=== PATIENT | male | born 1960 | race Caucasian/White ===

== ENCOUNTER 2021-01-21 17:24 | Inpatient (IN) | payer BC, SELFPAY ==
[2021-01-21] VITALS (25 sets, daily range): BP systolic 110–143; BP diastolic 72–94; PULSE 71–99; RESP 16–34; TEMP 36.2–38; O2SAT 90–97; BMI 25.2
--- NOTE | ~2021-01-21 | CT_ITS ---
EXAMINATION: CTA chest PE protocol DATE: 01/21/2021 18:46 INDICATION: Shortness of breath. Fever. TECHNIQUE: Computed tomography angiography (CTA) of the chest was performed with 100 mL Omnipaque-350 intravenous contrast timed to evaluate the pulmonary arteries. Coronal maximum intensity projection 3D-reconstructions were created by the technologist. Automated exposure control and iterative reconst ruction technique were employed. The dose-length product was 535.75 mGy-cm. COMPARISON: Chest single view 01/21/2021 FINDINGS: There are patchy areas of groundglass opacity and crazy paving involving all lobes. There a re patchy airspace opacities in the upper lobes and lower lobes. No pleural effusion. The heart size is normal. No pericardial effusion. There is no pulmonary embolus. There are cysts in the liver measu ring up to 13 mm. There is severe cervical spondylosis and mild thoracic spondylosis. IMPRESSION: 1. No pulmonary embolus. 2. Diffuse lung disease, likely atypical pneumonia such COVID-19 pneumonia. Reviewed, dictated and finalized at location A.
--- NOTE | ~2021-01-21 | XR_ITS ---
EXAMINATION: XR chest 1V portable DATE: 01/21/2021 18:04 INDICATION: Fever and shortness of breath. TECHNIQUE: A single frontal view of the chest was obtained. COMPARISON: None. FINDINGS: There are airspace opacities involving all lung zones bilaterally, worst in the peripheral midlung zones. No pleural effusion or pneumothorax. The heart size is normal. IMPRESSION: 1. Diffuse lung disease, consistent with pneumonia. Reviewed, dictated and finalized at location A.
--- NOTE | 2021-01-21 17:32 | ECG_ITS ---
Measurements Intervals [place] Rate: 92 P: 53 TN: 145 QRS: -22 QRSD: 101 T: 43 QT: 341 QTc: 422 Interpretive Statements SINUS RHYTHM DELAYED PRECORDIAL R/S TRANSITION BORDERLINE ECG Electronically Signed On 01-22-2021 6:00:22 CDT by Edmar Contreras D.O.
[2021-01-21 17:49] LABS: Basophils Percent Auto 0.2 % (0.2-1.2); Eosinophils Percent Auto 0.1 % (0-4.4); Hematocrit 44.8 % (42.0-52.0); Hemoglobin 15.7 g/dL (14.0-18.0); Immature Granulocyte Absolute 0.05 K/mm3 (0.00-0.031); Immature Granulocyte Percent A 0.6 % (0-0.5); Lymphocytes Absolute Auto 1.21 K/mm3 (0.9-3.2); Lymphocytes Percent Auto 13.7 % (18.3-44.2); Mean Corpuscular Hemoglobin 31.2 pg (26-34); Mean Corpuscular Volume 89.1 fl (80-100); Mean Platelet Volume 9.2 fl (7.4-10.4); Monocytes Absolute Auto 0.8 K/mm3 (0.1-0.6); Monocytes Percent Auto 9.4 % (2.6-8.5); Neutrophils Absolute Auto 6.7 K/mm3 (1.3-6.7); Platelet Count Result 369 k/mm3 (150-375); Red Blood Count 5.03 M/mm3 (4.6-6.20); Red Cell Distribution Width 12.3 % (11.5-14.5); White Blood Count 8.9 K/mm3 (4.5-10.0)
[2021-01-21 17:52] LABS: Alveolar/Arterial O2 Gradient 142.1 mmHg; Fractional Inspired Oxygen 32 %; HCO3 ABG 19.3 mEq/l (22.0-26.0); Oxygen Saturation ABG 92.1 % (95.0-100.0); Oxyhemoglobin 90.4 % THb (90.0-100.0); PCO2 ABG 25.6 mmHg (35.0-45.0); PO2 ABG 56.1 mmHg (80.0-100.0); PO2 FiO2 Ratio Arterial Blood 1.75 %; Total Hemoglobin 15.8 g/dL (12.0-18.0); pH ABG 7.496 (7.350-7.450)
[2021-01-21 17:53] LABS: Device NASAL CANNULA; Modified Allen's Test Pass; Site Drawn RIGHT RADIAL
--- NOTE | 2021-01-21 17:58 | ED.GENADULT ---
HPI - General Adult General Chief complaint: Shortness of Breath/Dyspnea Stated complaint: respiratory s/s Time Seen by Provider: 01/21/21 17:37 Source: patient and RN notes reviewed Mode of arrival: ambulatory Limitations: no limitations History of Present Illness HPI narrative: Patient is a 60-year-old male who presents to emergency department for evaluation of fatigue weakness shortness of breath that has been present for the last 6 days began with fatigue nonproductive cough patient notes weakness with little p.o. intake. 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 Patient denies any vomiting diarrhea patient. Patient denies any sick contacts at home. Patient is not been taking anything for his symptoms. Related Data Home Medications Medication Instructions Recorded Confirmed amlodipine 01/21/21 lisinopril 01/21/21 Allergies Allergy/AdvReac Type Severity Reaction Status Date / Time No Known Allergies Allergy Mild Verified 02/03/08 04:41 Review of Systems Review of Systems: All systems reviewed & are unremarkable except as noted in HPI and below PMFSH Family History Family History (Updated 03/24/14 @ 07:13 by DOCTOR UNKNOWN) Mother Family history of heart disease in male family member before age 55 Social History Social History Smoking status: Never smoker Alcohol intake: current Exam Narrative: Exam Narrative: GENERAL: Well-appearing, well-nourished, and in no acute distress. HEAD: Normocephalic, atraumatic. EYES: PERRLA and EOMI. ENT: Nares clear, no rhinorrhea or epistaxis. Mucous membranes moist. CHEST: Clear to auscultation. No respiratory distress. No wheezes rales or rhonchi HEART: Regular rate and rhythm. No murmur heard. Crackles throughout the lung jo ABDOMEN: Soft, nontender, distended EXTREMITIES: Normal range of motion. No edema. SKIN: Warm, dry, no rash. NEURO: No focal deficits. Alert and oriented x3. Cranial nerves II through XII grossly intact PSYCH: Normal mood and affect. Course Course Emergency Course: Patient presented with respiratory distress given his hypoxemia with diffuse Covid pneumonia patient was given fluids antipyretics antivirals plasma ordered from the ER will be placed in hospital for findings all concerning for Covid pneumonia patient agrees to stay in hospital is currently on 5 L nasal cannula. Patient will be admitted to the IMU. PE was ruled out Consultations Consultation #1: Discussed case with hospitalist Dr. Ruvalcaba who has agreed to accept the patient, patient will be placed in the IMU Date: 01/21/21 Time: 20:07 Vital Signs Vital signs: Vital Signs Temperature 100.4 F H 01/21/21 17:28 Pulse Rate 95 01/21/21 17:28 Respiratory Rate 25 H 01/21/21 17:28 Blood Pressure 132/90 01/21/21 17:28 Pulse Oximetry 94 01/21/21 17:28 Temperature 99.8 F H 01/21/21 19:08 Pulse Rate 84 01/21/21 19:31 Respiratory Rate 25 H 01/21/21 19:31 Blood Pressure 125/84 01/21/21 19:31 Pulse Oximetry 91 01/21/21 19:31 Medical Decision Making MDM Narrative Medical decision making narrative: Patient in the room at this time aware of case findings treatment plan diagnosis will require hospitalization for findings all concerning for hypoxemia and respiratory distress secondary to Covid pneumonia. Vital Signs Vital Signs: Vital Signs Temperature 100.4 F H 01/21/21 17:28 Pulse Rate 95 01/21/21 17:28 Respiratory Rate 25 H 01/21/21 17:28 Blood Pressure 132/90 01/21/21 17:28 Pulse Oximetry 94 01/21/21 17:28 Temperature 99.8 F H 01/21/21 19:08 Pulse Rate 84 01/21/21 19:31 Respiratory Rate 25 H 01/21/21 19:31 Blood Pressure 125/84 01/21/21 19:31 Pulse Oximetry 91 01/21/21 19:31 Lab Data Result diagrams: 01/21/21 17:37 01/21/21 17:37 Labs: Lab Results 01/21/21 01/21/21 01/21/21 Range/Un
[2021-01-21 17:59] LABS: Prothrombin Time 13.6 Seconds (11.1-14.7)
[2021-01-21 17:59] LABS: Lactic Acid Reflex 1.4 mmol/L (0.7-2.1)
[2021-01-21 18:00] LABS: Alanine Aminotransferase 33 U/L (4-50); Albumin Level 4.1 g/dL (3.5-5.1); Alkaline Phosphatase 41 U/L (38-126); Anion Gap 10 mmol/L (8-16); Aspartate Amino Transferase 53 U/L (17-59); Bilirubin,Total 0.7 mg/dL (0.2-1.3); Blood Urea Nitrogen 16 mg/dL (9-20); Calcium 8.6 mg/dL (8.4-10.2); Carbon Dioxide 25 mmol/L (22-30); Chloride 99 mmol/L (98-107); Estimated CRCL calculation 83 ml/min; Estimated Glomerular Filt Rate > 60; Glucose 121 mg/dL (75-110); Magnesium 2.2 mg/dL (1.6-2.3); Partial Thromboplastin Time 25.1 SECONDS (22.3-36.8); Potassium 4.2 mmol/L (3.4-5.0); Sodium 134 mmol/L (137-145)
[2021-01-21 18:03] LABS: Atypical Lymphocytes Present; Platelet Estimate Adequate (Adequate)
[2021-01-21 18:11] LABS: Phosphorus 3.4 mg/dL (2.5-4.5)
[2021-01-21 18:11] LABS: NT Pro B Type Natriuretic Pept 74 pg/mL (5-100); Troponin I < 0.012 ng/mL (0.000-0.034)
--- NOTE | 2021-01-21 18:14 | PC.NURSE ---
Patient states he has been having explosive diarrhea for a week but states today his stools seem more solid. Patient reports a decreased appetite and has been dribbling while attempting to void.
[2021-01-21 18:16] LABS: D Dimer 2.35 ug/mL (<0.48)
[2021-01-21] MEDS: DEXAMETHASONE SOD PHOS INJ 4 MG/ML VIAL 6 MG IV PUSH (18:16)
[2021-01-21] MEDS: SODIUM CHLORIDE 0.9% IV 1,000 ML 999 ML IV CONT (18:17)
[2021-01-21] MEDS: FAMOTIDINE 20 MG/2 ML VIAL IV PUSH (18:19)
[2021-01-21 18:41] LABS: Procalcitonin 0.1 ng/mL
--- NOTE | 2021-01-21 19:02 | PC.NURSE ---
Patient back from radiology.
--- NOTE | 2021-01-21 19:30 | PC.NURSE ---
Pt O2 sat at 90% on 4L, consulted PA. Pt now on 5L per verbal read back order.
[2021-01-21 20:35] LABS: Alanine Aminotransferase 30 U/L (4-50); Estimated CRCL calculation 93 ml/min; Estimated Glomerular Filt Rate > 60
[2021-01-21] MEDS: SODIUM CHLORIDE 0.9% IV 250 ML 30 ML IV CONT (20:35)
[2021-01-21 20:36] LABS: INR 1.1; Prothrombin Time 14.7 Seconds (11.1-14.7)
[2021-01-21] MEDS: REMDESIVIR 200 MG/NS 250 ML 200 MG/250 ML BAG 250 MG IVPB (20:37)
[2021-01-21] MEDS: ALBUTEROL SULFATE (*SP) INHALER 1 PUFF (20:43)
--- NOTE | 2021-01-21 21:02 | PC.NURSE ---
Report received from CINTHIA Patel.
--- NOTE | 2021-01-21 21:12 | PM.IMHP ---
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 Upon presentation to emergency room his room oxygen saturation was in the low 80s requiring supplemental oxygen with 5 L and increased to 92%. Preliminary workup was significant for extensive multilevel lung infiltrates present on chest x-ray and CT angio with was which was negative for PE. patient denies any nausea vomiting diarrhea abdominal pain chest pain syncope near syncope PND orthopnea. Decision has been made to admit the patient for for the management and treatment. Review of Systems Review of Systems: Narrative: patient presented to the emergency room due to worsening fatigue decreased stamina shortness of breath chills fevers decreased appetite Constitutional: Constitutional: Reports body ache(s), Reports chills, Reports fatigue, Reports fever(s), Reports lethargy, Reports malaise and Reports weakness Eyes: Eyes: Denies change in vision ENT: Denies nasal congestion, Denies nasal discharge and Denies nasal obstruction Cardiovascular: Cardiovascular: Denies irregular heart rhythm, Denies radiating jaw, neck or arm pain, Denies palpitations, Denies dyspnea, Reports dyspnea on exertion and Denies orthopnea Respiratory: Respiratory: Reports cough, Denies excessive phlegm production, Reports dyspnea and Denies wheezing Gastrointestinal: Gastrointestinal: Denies dyspepsia, Denies diarrhea, Denies nausea and Denies vomiting Genitourinary: Genitourinary: Denies dysuria Musculoskeletal: Musculoskeletal: Reports no additional musculoskeletal complaints Integumentary/Breasts: Skin/Breast: Reports system reviewed and no additional complaints, except as docu Neurologic: Reports system reviewed and no additional complaints, except as documented Psychiatric: Psychiatric: Reports no additional psychiatric complaints Endocrine: Endocrine: Reports no additional endocrine complaints Hematologic/Lymphatic: Hematologic/Lymphatic: Reports no additional hematologic/lymphatic complaints Allergic/Immunologic: Allergic/Immunologic: Reports no additional allergic/immunologic complaints [facility] Family History Family History (Updated 03/24/14 @ 07:13 by DOCTOR UNKNOWN) Mother Family history of heart disease in male family member before age 55 Social History Social History Smoking status: Never smoker Alcohol intake: current Meds Home Medications and Allergies Home Medications Medication Instructions Recorded Confirmed Type amlodipine 01/21/21 History lisinopril 01/21/21 History Allergies Allergy/AdvReac Type Severity Reaction Status Date / Time No Known Allergies Allergy Mild Verified 02/03/08 04:41 Vital Signs Vital Signs - 24 hr 01/21/21 17:28 01/21/21 17:30 01/21/21 17:31 Temperature 100.4 F H Pulse Rate 95 91 95 Respiratory Rate 25 H 16 28 H Blood Pressure 132/90 132/90 Pulse Oximetry 94 93 94 01/21/21 17:43 01/21/21 17:45 01/21/21 17:46 Temperature Pulse Rate 87 92 93 Respiratory Rate 31 H 32 H Blood Pressure 134/81 Pulse Oximetry 93 92 93 01/21/21 18:00 01/21/21 18:01 01/21/21 18:15 Temperature Pulse Rate 97 99 97 Respiratory Rate 34 H 33 H 21 H Blood Pressure 143/94 H Pulse Oximetry 91 91 92 01/21/21 19:07 01/21/21 19:08 01/21/21 19:26 Temperature 99.8 F H 99.8 F H Pulse Rate 81 Respiratory Rate 25 H Blood Pressure 119/81 Pulse Oximetry 91 01/21/21 19:30 01/21/21 19:31 01/21/21 20:01
--- NOTE | 2021-01-21 21:27 | ADMGEN ---
This patient, Tavo Ibrahim, was admitted to IMU Room 213-01 on 01/21/21 at 2110. Patient/family oriented to hospital policies and general routines including ID bracelet, bed and alarms, visiting hours, pain management, procedures, bathroom and other care routines, personal items, smoking policy, room service/diet, and visiting hours. Information on how to activate the Rapid Response Team has been discussed. Patient/Family are encouraged to report perceived risks to care and to ask questions if they do not understand what they are told or what they should do.
[2021-01-21] MEDS: LACTATED RINGERS 1,000 ML 80 ML IV CONT (21:47)
[2021-01-22] VITALS (25 sets, daily range): BP systolic 106–168; BP diastolic 75–80; PULSE 61–105; RESP 18–34; TEMP 36.1–37.1; O2SAT 88–97; BMI 25.2
[2021-01-22 05:05] LABS: Basophils Percent Auto 0.4 % (0.2-1.2); Hematocrit 40.9 % (42.0-52.0); Hemoglobin 14.2 g/dL (14.0-18.0); Immature Granulocyte Absolute 0.07 K/mm3 (0.00-0.031); Lymphocytes Absolute Auto 0.75 K/mm3 (0.9-3.2); Lymphocytes Percent Auto 11.1 % (18.3-44.2); Mean Corpuscular HGB Conc 34.7 g/dl (32-36); Mean Corpuscular Hemoglobin 31.2 pg (26-34); Mean Corpuscular Volume 89.9 fl (80-100); Mean Platelet Volume 9.1 fl (7.4-10.4); Monocytes Absolute Auto 0.5 K/mm3 (0.1-0.6); Monocytes Percent Auto 7.3 % (2.6-8.5); Neutrophils Absolute Auto 5.4 K/mm3 (1.3-6.7); Neutrophils Percent Auto 80.2 % (45.5-73.1); Platelet Count Result 352 k/mm3 (150-375); Red Blood Count 4.55 M/mm3 (4.6-6.20); Red Cell Distribution Width 12.4 % (11.5-14.5); White Blood Count 6.8 K/mm3 (4.5-10.0)
[2021-01-22 05:15] LABS: Alanine Aminotransferase 29 U/L (4-50); Albumin Level 3.8 g/dL (3.5-5.1); Alkaline Phosphatase 37 U/L (38-126); Anion Gap 10 mmol/L (8-16); Aspartate Amino Transferase 34 U/L (17-59); Bilirubin,Total 0.4 mg/dL (0.2-1.3); Blood Urea Nitrogen 14 mg/dL (9-20); Calcium 8.1 mg/dL (8.4-10.2); Carbon Dioxide 21 mmol/L (22-30); Chloride 103 mmol/L (98-107); Estimated CRCL calculation 105 ml/min; Estimated Glomerular Filt Rate > 60; Glucose 147 mg/dL (75-110); Potassium 4.7 mmol/L (3.4-5.0); Sodium 134 mmol/L (137-145)
[2021-01-22 05:17] LABS: Prothrombin Time 14.1 Seconds (11.1-14.7)
[2021-01-22] MEDS: FAMOTIDINE 20 MG/2 ML VIAL IV PUSH ×2 (09:04→20:34)
[2021-01-22] MEDS: amLODIPine BESYLATE 5 MG TABLET 10 MG PO (09:04)
[2021-01-22] MEDS: lisinopriL 10 MG TABLET 30 MG PO (09:04)
[2021-01-22] MEDS: ENOXAPARIN 40 MG/0.4 ML SYRINGE SUB-Q ×2 (09:04→20:34)
[2021-01-22] MEDS: ALBUTEROL SULFATE (*SP) AEROSOL 1 PUFF 4 PUFF INHALATION ×2 (10:24→13:00)
[2021-01-22] MEDS: LACTATED RINGERS 1,000 ML 80 ML IV CONT (15:00)
--- NOTE | 2021-01-22 16:47 | PM.CNPUL ---
Assessment and Plan Assessment and plan (1) Pneumonia due to coronavirus disease 2019: Code(s): U07.1 - COVID-19; J12.82 - Pneumonia due to coronavirus disease 2019 Status: Acute Assessment and Plan: Patient awaiting COVID-19 test results and started on remdesivir on 01/21, Dexamethasone started 01/21. Convalescent plasma given 01/21. Emperically started on ceftriaxone and azithromycin. - Remdesivir for 10 days - Dexamethasone for 10 days - Continuous pulse oximetry - Prone positioning as tolerated. - Avoid any fluid overload. BNP 74 on 01/21. - emperic azithromycin and ceftraixone for CAP. - lovenox 40 Q 12. 01/22 patient states he is improved and currently on 10 L nasal cannula oxygen with saturations 95%. Goal saturations are 90-94% and will utilize nasal cannula oxygen to achieve this. Patient may require high-flow oxygen, BiPAP, or mechanical ventilation. I spoke with him about his wishes for resuscitation and he is full code including intubation should he need that. Will follow with you. (2) Acute respiratory failure with hypoxia: Code(s): J96.01 - Acute respiratory failure with hypoxia Status: Acute Assessment and Plan: Etiology of hypoxic respiratory failure is likely COVID pneumonia. 01/21 17:15 3 L NC sats 94% 01/21 20:00 5 L NC sats 94% 01/22 08:00 5 L NC sats 95% 01/22 16:00 10 L NC sats 94% History of Present Illness History of Present Illness Consult date: 01/22/21 Requesting physician: Alaina Kapoor MD Reason for consult: hypoxemia Chief complaint: PUI,Pneumonia,Respiratory Distress,Hypoxemia Narrative: This is a new pulmonary consult for hypoxemia this is a 60-year-old male with a history of hypertension who presented to the hospital on 01/21 with 5 days history of fever, fatigue, poor appetite, aches and pains, dry cough and shortness of breath. patient was noted to be hypoxemic on room air in the emergency department with saturations in the low 80s. Patient has CT angiogram of the chest that showed no PE but did show diffuse multifocal ground-glass infiltrates characteristic of COVID pneumonia. Patient had a BNP of 74 and a negative troponin. Patient was tested for COVID and empirically started on dexamethasone, REMdesivir and given convalescent plasma. Patient was also empirically started on ceftriaxone and azithromycin. 01/22 Today the patient had worsening hypoxemia and required 10 L nasal cannula oxygen. Currently the patient is on 10 L nasal cannula oxygen with saturations 95%. Patient states that he feels much better today and has more strength, is breathing easier. Patient denies cough or hemoptysis PE. Patient did not receive the COVID vaccination. At baseline patient states he has no respiratory limitations in his daily activity. Patient states that he could walk 2-3 miles if needed. 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 DATA: EXAMINATION: CTA chest PE protocol DATE: 01/21/2021 18:46 INDICATION: Shortness of breath. Fever. TECHNIQUE: Computed tomography angiography (CTA) of the chest was performed with 100 mL Omnipaque-350 intravenous contrast timed to evaluate the pulmonary arteries. Coronal maximum intensity projection 3D-reconstructions were created by the technologist. Automated exposure control and iterative reconstruction technique were employed. The dose-length product was 535.75 mGy-cm. COMPARISON: Chest single view 01/21/2021 FINDINGS: There are patchy areas of groundglass opacity and crazy paving involving all lobes. There are patchy airspace opacities in the upper lobes and lower lobes. No pleural effusion. The heart size is normal. No pericardial effusion. There is no pulmonary embolus. There are cysts in the liver measuring up to 13 mm. There is severe cervical spondy
--- NOTE | 2021-01-22 17:02 | PM.IMPN ---
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 Upon presentation to emergency room his room oxygen saturation was in the low 80s requiring supplemental oxygen with 5 L and increased to 92%. Preliminary workup was significant for extensive multilevel lung infiltrates present on chest x-ray and CT angio with was which was negative for PE. patient denies any nausea vomiting diarrhea abdominal pain chest pain syncope near syncope PND orthopnea. Decision has been made to admit the patient for for the management and treatment. 01/22 patient is suspected to have a COVID-19 seen by manager clinic recommended continue Remdesivir for 10 days, dexamethasone 10 and started the patient azithromycin and ceftriaxone for possible community-acquired pneumonia, stable is feeling much better compared to when he arrived, not as short of breath, will follow-up on COVID-19 test and further recommendation to follow, patient is encouraged prone position. 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 Upon presentation to emergency room his room oxygen saturation was in the low 80s requiring supplemental oxygen with 5 L and increased to 92%. Preliminary workup was significant for extensive multilevel lung infiltrates present on chest x-ray and CT angio with was which was negative for PE. patient denies any nausea vomiting diarrhea abdominal pain chest pain syncope near syncope PND orthopnea. Decision has been made to admit the patient for for the management and treatment. 01/22 patient is suspected to have a COVID-19 seen by manager clinic recommended continue Remdesivir for 10 days, dexamethasone 10 and started the patient azithromycin and ceftriaxone for possible community-acquired pneumonia, stable is feeling much better compared to when he arrived, not as short of breath, will follow-up on COVID-19 test and further recommendation to follow, patient is encouraged prone position. Review of Systems Review of Systems: All systems reviewed & are unremarkable except as noted in HPI and below Exam Narrative: Exam Narrative: Patient is comfortable, NAD HEENT: eyes are clear and none icteric LUNGS: normal respiratory effort ABD: not distended Lower extremities: no
[2021-01-22] MEDS: DEXAMETHASONE SOD PHOS INJ 4 MG/ML VIAL 6 MG IV PUSH (17:12)
[2021-01-22 18:16] LABS: SARS-CoV-2 RNA PCR Positive
[2021-01-22] MEDS: ALBUTEROL SULFATE NEB 2.5 MG/0.5 ML INH INHALATION (19:45)
[2021-01-22] MEDS: IPRATROPIUM BR 0.02% INH SOLN 0.5 MG/2.5 ML VIAL INHALATION (19:45)
[2021-01-22] MEDS: REMDESIVIR 100 MG/NS 250 ML 100 MG/250 ML BAG 250 MG IVPB (20:55)
[2021-01-23] VITALS (25 sets, daily range): BP systolic 112–135; BP diastolic 71–87; PULSE 64–95; RESP 17–26; TEMP 36.5–36.8; O2SAT 93–99
[2021-01-23] MEDS: ALBUTEROL SULFATE NEB 2.5 MG/0.5 ML INH INHALATION ×5 (00:32→20:20)
[2021-01-23] MEDS: IPRATROPIUM BR 0.02% INH SOLN 0.5 MG/2.5 ML VIAL INHALATION ×5 (00:32→20:20)
[2021-01-23 05:24] LABS: INR 1.1; Prothrombin Time 14.4 Seconds (11.1-14.7)
[2021-01-23 05:27] LABS: Alanine Aminotransferase 25 U/L (4-50); Estimated CRCL calculation 121 ml/min; Estimated Glomerular Filt Rate > 60
[2021-01-23] MEDS: amLODIPine BESYLATE 5 MG TABLET 10 MG PO (08:21)
[2021-01-23] MEDS: lisinopriL 10 MG TABLET 30 MG PO (08:21)
[2021-01-23] MEDS: ENOXAPARIN 40 MG/0.4 ML SYRINGE SUB-Q ×2 (08:22→20:15)
[2021-01-23] MEDS: DEXAMETHASONE SOD PHOS INJ 4 MG/ML VIAL 6 MG IV PUSH (08:22)
[2021-01-23] MEDS: FAMOTIDINE 20 MG/2 ML VIAL IV PUSH ×2 (08:23→20:15)
[2021-01-23] MEDS: LACTATED RINGERS 1,000 ML 80 ML IV CONT ×2 (08:23→23:33)
[2021-01-23] MEDS: ACETAMINOPHEN 325 MG TABLET 650 MG PO (08:25)
--- NOTE | 2021-01-23 10:07 | PM.PNPUL ---
Progress Note: A&P Assessment and Plan (1) Pneumonia due to coronavirus disease 2019: Code(s): U07.1 - COVID-19; J12.82 - Pneumonia due to coronavirus disease 2019 Status: Acute Assessment and Plan: Patient COVID-19 positive 01/21 and started on remdesivir on 01/21, Dexamethasone started 01/21. Convalescent plasma given 01/21. Emperically started on ceftriaxone and azithromycin. - Remdesivir for 10 days - Dexamethasone for 10 days - Continuous pulse oximetry - Prone positioning as tolerated. - Avoid any fluid overload. BNP 74 on 01/21. - emperic azithromycin and ceftraixone for CAP. - lovenox 40 Q 12. 01/22 patient states he is improved and currently on 10 L nasal cannula oxygen with saturations 95%. Goal saturations are 90-94% and will utilize nasal cannula oxygen to achieve this. Patient may require high-flow oxygen, BiPAP, or mechanical ventilation. I spoke with him about his wishes for resuscitation and he is full code including intubation should he need that. 01/23 Today the patient tells me that he continues to clinically feel better. The shortness of breath is better the cough is better he can take a deeper breath. Will follow with you. (2) Acute respiratory failure with hypoxia: Code(s): J96.01 - Acute respiratory failure with hypoxia Status: Acute Assessment and Plan: Etiology of hypoxic respiratory failure is likely COVID pneumonia. 01/21 17:15 3 L NC sats 94% 01/21 20:00 5 L NC sats 94% 01/22 08:00 5 L NC sats 95% 01/22 16:00 10 L NC sats 94% 01/23 08:00 14 L NC sats 95%. Subjective Date/time seen: 01/23/21 10:07 Interval history: this is a 60-year-old male with a history of hypertension who presented to the hospital on 01/21 with 5 days history of fever, fatigue, poor appetite, aches and pains, dry cough and shortness of breath. patient was noted to be hypoxemic on room air in the emergency department with saturations in the low 80s. Patient has CT angiogram of the chest that showed no PE but did show diffuse multifocal ground-glass infiltrates characteristic of COVID pneumonia. Patient had a BNP of 74 and a negative troponin. Patient was tested for COVID and empirically started on dexamethasone, REMdesivir and given convalescent plasma. Patient was also empirically started on ceftriaxone and azithromycin. Covid posirtive from 01/21. 01/22 Today the patient had worsening hypoxemia and required 10 L nasal cannula oxygen. Currently the patient is on 10 L nasal cannula oxygen with saturations 95%. Patient states that he feels much better today and has more strength, is breathing easier. Patient denies cough or hemoptysis PE. Patient did not receive the COVID vaccination. 01/23 Today the patient tells me that he continues to clinically feel better. The shortness of breath is better the cough is better he can take a deeper breath. His oxygenation is worse and he is now on 14 L nasal cannula with saturations 95%. At baseline patient states he has no respiratory limitations in his daily activity. Patient states that he could walk 2-3 miles if needed. 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 DATA: EXAMINATION: CTA chest PE protocol DATE: 01/21/2021 18:46 INDICATION: Shortness of breath. Fever. TECHNIQUE: Computed tomography angiography (CTA) of the chest was performed with 100 mL Omnipaque-350 intravenous contrast timed to evaluate the pulmonary arteries. Coronal maximum intensity projection 3D-reconstructions were created by the technologist. Automated exposure control and iterative reconstruction technique were employed. The dose-length product was 535.75 mGy-cm. COMPARISON: Chest single view 01/21/2021 FINDINGS: There are patchy areas of groundglass opacity and crazy paving involving all lobes. There
--- NOTE | 2021-01-23 14:44 | PCRCNOTE ---
Window of time for administration has passed. See next scheduled administration.
--- NOTE | 2021-01-23 15:53 | PM.IMPN ---
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 Upon presentation to emergency room his room oxygen saturation was in the low 80s requiring supplemental oxygen with 5 L and increased to 92%. Preliminary workup was significant for extensive multilevel lung infiltrates present on chest x-ray and CT angio with was which was negative for PE. patient denies any nausea vomiting diarrhea abdominal pain chest pain syncope near syncope PND orthopnea. Decision has been made to admit the patient for for the management and treatment. 01/22 patient is suspected to have a COVID-19 seen by scalder recommended continue Remdesivir for 10 days, dexamethasone 10 and started the patient azithromycin and ceftriaxone for possible community-acquired pneumonia, stable is feeling much better compared to when he arrived, not as short of breath, will follow-up on COVID-19 test and further recommendation to follow, patient is encouraged prone position. 01/23: COVID-19 positive continue 4 g twice a day for 10 days dexamethasone for 10 days continue on azithromycin and ceftriaxone for possible community-acquired pneumonia also had convalescent plasma on . Titrate oxygen as needed to keep oxygen more than 90% pulmonary following appreciate his recommendations chest x-ray and CT are reviewed (2) Hypoxemia: Code(s): R09.02 - Hypoxemia Status: Acute Assessment and Plan: currently on supplemental oxygen by nasal cannula (3) HTN (hypertension): Code(s): I10 - Essential (primary) hypertension Status: Acute Assessment and Plan: continue to monitor continue amlodipine continue lisinopril (4) DVT prophylaxis: Code(s): Z29.9 - Encounter for prophylactic measures, unspecified Status: Acute Assessment and Plan: Lovenox 40 q.12 (5) Pneumonia due to COVID-19 virus: Code(s): U07.1 - COVID-19; J12.82 - Pneumonia due to coronavirus disease 2019 Status: Acute Assessment and Plan: on REM-severe and Decadron (6) Acute respiratory failure with hypoxia: Code(s): J96.01 - Acute respiratory failure with hypoxia Status: Acute Assessment and Plan: oxygen supplementation Subjective Date/time seen: 01/23/21 15:53 Interval history: feeling a little better today. Symptoms since 01 21. Still gets short of breath with exertion. Oxygen requirement has gone up to 14 L however during the evaluation was able to titrated down to 10 L with good oxygen saturation on the monitor. Review of Systems Review of Systems: All systems reviewed & are unremarkable except as noted in HPI and below Exam Narrative: Exam Narrative: Patient is comfortable, NAD HEENT: eyes are clear and none icteric LUNGS: normal respiratory effort No respiratory distress ABD: soft nondistended nontender no organomegaly Lower extremities: no edema cyanosis or clubbing SKIN: nonjaundiced Neuro: grossly intact normal speech. alert and oriented x3 Objective Data Vital Signs Vital Signs: Vital Signs - 24 hr 01/22/21 16:00 01/22/21 16:23 01/22/21 18:00 Temperature 98.4 F Pulse Rate 105 H 97 91 Respiratory Rate 19 Blood Pressure 130/80 Pulse Oximetry 94 97 01/22/21 19:50 01/22/21 19:52 01/22/21 19:59 Temperature 98 F Pulse Rate 82 70 80 Respiratory Rate 20 20 20 Blood Pressure 119/77 Pulse Oximetry 92 91 92 01/22/21 20:00 01/22/21 22:00 01/22/21 23:37 Te
[2021-01-23] MEDS: REMDESIVIR 100 MG/NS 250 ML 100 MG/250 ML BAG 250 MG IVPB (21:19)
[2021-01-24] VITALS (26 sets, daily range): BP systolic 117–133; BP diastolic 77–91; PULSE 65–96; RESP 16–22; TEMP 36.3–36.6; O2SAT 94–97
[2021-01-24] MEDS: ALBUTEROL SULFATE NEB 2.5 MG/0.5 ML INH INHALATION ×5 (00:41→20:38)
[2021-01-24] MEDS: IPRATROPIUM BR 0.02% INH SOLN 0.5 MG/2.5 ML VIAL INHALATION ×3 (00:42→08:49)
[2021-01-24 05:08] LABS: INR 1.1
[2021-01-24 05:09] LABS: Alanine Aminotransferase 23 U/L (4-50); Estimated CRCL calculation 105 ml/min; Estimated Glomerular Filt Rate > 60
[2021-01-24] MEDS: DEXAMETHASONE SOD PHOS INJ 4 MG/ML VIAL 6 MG IV PUSH (08:21)
[2021-01-24] MEDS: amLODIPine BESYLATE 5 MG TABLET 10 MG PO (08:21)
[2021-01-24] MEDS: lisinopriL 10 MG TABLET 30 MG PO (08:21)
[2021-01-24] MEDS: ENOXAPARIN 40 MG/0.4 ML SYRINGE SUB-Q ×2 (08:23→20:35)
[2021-01-24] MEDS: FAMOTIDINE 20 MG/2 ML VIAL IV PUSH ×2 (08:30→20:35)
--- NOTE | 2021-01-24 09:19 | PM.PNPUL ---
Progress Note: A&P Assessment and Plan (1) Pneumonia due to coronavirus disease 2019: Code(s): U07.1 - COVID-19; J12.82 - Pneumonia due to coronavirus disease 2018 Status: Acute Assessment and Plan: Patient COVID-19 positive 01/21 and started on remdesivir on 01/21, Dexamethasone started 01/21. Convalescent plasma given 01/21. Emperically started on ceftriaxone and azithromycin. - Remdesivir for 10 days - Dexamethasone for 10 days - Continuous pulse oximetry - Prone positioning as tolerated. - Avoid any fluid overload. BNP 74 on 01/21. - emperic azithromycin and ceftraixone for CAP. - lovenox 40 Q 12. 01/22 patient states he is improved and currently on 10 L nasal cannula oxygen with saturations 95%. Goal saturations are 90-94% and will utilize nasal cannula oxygen to achieve this. Patient may require high-flow oxygen, BiPAP, or mechanical ventilation. I spoke with him about his wishes for resuscitation and he is full code including intubation should he need that. 01/23 Today the patient tells me that he continues to clinically feel better. The shortness of breath is better the cough is better he can take a deeper breath. 01/24 Patient denies fever, dry cough persists but he states he is feeling much better he is walking in the room and actually doing squats and is rooms to exercises legs. Currently he is on 12 L nasal cannula with saturations 95%. Blood cultures from 01/21 are negative and I will discontinue ceftriaxone and azithromycin. Will decrease albuterol neb to Q 6 and DC ipratroprium neb. Patient clinically improving and oxygen requirements stabilizing. Continue remdesivir and dexamethasone for a total of 10 days unless the patient is on room air with rest and ambulation. Patient should have a chest x-ray prior to discharge to serve as a new baseline. Prior to discharge his oxygen requirements should be assessed during the day and at night with a home O2 evaluation and an overnight apnea link. Discussed with Dr. Rivera. Will sign off. Please call with questions. (2) Acute respiratory failure with hypoxia: Code(s): J96.01 - Acute respiratory failure with hypoxia Status: Acute Assessment and Plan: Etiology of hypoxic respiratory failure is COVID pneumonia. 01/21 17:15 3 L NC sats 94% 01/21 20:00 5 L NC sats 94% 01/22 08:00 5 L NC sats 95% 01/22 16:00 10 L NC sats 94% 01/23 08:00 14 L NC sats 95%. 01/24 08:00 12 L NC sats 95% Subjective Date/time seen: 01/24/21 09:19 Interval history: this is a 60-year-old male with a history of hypertension who presented to the hospital on 01/21 with 5 days history of fever, fatigue, poor appetite, aches and pains, dry cough and shortness of breath. patient was noted to be hypoxemic on room air in the emergency department with saturations in the low 80s. Patient has CT angiogram of the chest that showed no PE but did show diffuse multifocal ground-glass infiltrates characteristic of COVID pneumonia. Patient had a BNP of 74 and a negative troponin. Patient was tested for COVID and empirically started on dexamethasone, REMdesivir and given convalescent plasma. Patient was also empirically started on ceftriaxone and azithromycin. Covid posirtive from 01/21. 01/22 Today the patient had worsening hypoxemia and required 10 L nasal cannula oxygen. Currently the patient is on 10 L nasal cannula oxygen with saturations 95%. Patient states that he feels much better today and has more strength, is breathing easier. Patient denies cough or hemoptysis PE. Patient did not receive the COVID vaccination. 01/23 Today the patient tells me that he continues to clinically feel better. The shortness of breath is better the cough is better he can take a deeper breath. His oxygenation is worse and he is now on 14 L nasal cannula with saturations 95%. 01/24 Patient denies fever, dry cough persists but he states he is feeling much better he is walking in the ro
--- NOTE | 2021-01-24 10:51 | PCDIET ---
Nutrition Follow-Up Complete: Nutrition Diagnosis: Involuntary weight loss related to poor appetite as evidenced by patient reporting 13 pound weight loss x 1 week due to not eating. Nutrition Goal: Patient will consume 75% of meals/supplements or greater and maintain weight. Goal in progress. Average intake since admission has been 67% of recorded meals on regular diet. Patient feels he is eating well on regular diet and reports taking Ensure Compact which is provided twice per day. Spoke with patient via phone due to COVID-19 precautions. Last recorded weight is 91.3 kg which is increased from last review. +I/O. Bowel Motility: Last documented BM on 01/22/21 x 1. Labs Reviewed: RBC (4.55), Hct (40.9) Meds Noted: Albuterol, Rocephin, Norvasc, Decadron, Zithromax, Pepcid, Atrovent, Lisinopril, Remdesivir Additional Notes: No documented skin breakdown. Will continue to monitor with same goal. Nutrition Monitoring and Evaluation: Follow up every 5 days.
[2021-01-24] MEDS: ACETAMINOPHEN 325 MG TABLET 650 MG PO ×2 (12:20→20:52)
[2021-01-24 12:24] LABS: Hematocrit 40.3 % (42.0-52.0); Hemoglobin 14.1 g/dL (14.0-18.0); Mean Corpuscular Hemoglobin 31.2 pg (26-34); Mean Corpuscular Volume 89.2 fl (80-100); Platelet Count Result 373 k/mm3 (150-375); Red Blood Count 4.52 M/mm3 (4.6-6.20); Red Cell Distribution Width 12.3 % (11.5-14.5); White Blood Count 17.4 K/mm3 (4.5-10.0)
[2021-01-24 12:35] LABS: Alanine Aminotransferase 28 U/L (4-50); Albumin Level 3.7 g/dL (3.5-5.1); Alkaline Phosphatase 44 U/L (38-126); Anion Gap 10 mmol/L (8-16); Aspartate Amino Transferase 37 U/L (17-59); Bilirubin,Total 0.4 mg/dL (0.2-1.3); Blood Urea Nitrogen 15 mg/dL (9-20); Calcium 8.6 mg/dL (8.4-10.2); Carbon Dioxide 22 mmol/L (22-30); Chloride 103 mmol/L (98-107); Creatine Kinase 71 U/L (55-170); Estimated CRCL calculation 121 ml/min; Estimated Glomerular Filt Rate > 60; Glucose 126 mg/dL (75-110); Magnesium 1.9 mg/dL (1.6-2.3); Potassium 4.5 mmol/L (3.4-5.0); Sodium 135 mmol/L (137-145)
--- NOTE | 2021-01-24 16:38 | PM.IMPN ---
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 Upon presentation to emergency room his room oxygen saturation was in the low 80s requiring supplemental oxygen with 5 L and increased to 92%. Preliminary workup was significant for extensive multilevel lung infiltrates present on chest x-ray and CT angio with was which was negative for PE. patient denies any nausea vomiting diarrhea abdominal pain chest pain syncope near syncope PND orthopnea. Decision has been made to admit the patient for for the management and treatment. 01/22 patient is suspected to have a COVID-19 seen by pin ball machine mechanic recommended continue Remdesivir for 10 days, dexamethasone 10 and started the patient azithromycin and ceftriaxone for possible community-acquired pneumonia, stable is feeling much better compared to when he arrived, not as short of breath, will follow-up on COVID-19 test and further recommendation to follow, patient is encouraged prone position. 01/23: COVID-19 positive continue 4 g twice a day for 10 days dexamethasone for 10 days continue on azithromycin and ceftriaxone for possible community-acquired pneumonia also had convalescent plasma on . Titrate oxygen as needed to keep oxygen more than 90% pulmonary following appreciate his recommendations chest x-ray and CT are reviewed 01/24: Discussed with pulmonary continue to titrate oxygen requirement. Down to 7 L currently. Antibiotic started with low suspicions of ongoing bacterial pneumonia. Conversation plasma taken on discussed COVID-19 vaccination. Continue oxygen supplementation may shower precautions discussed with the nursing staff. Remdesivir and Decadron planned for 10 total days. (2) Hypoxemia: Code(s): R09.02 - Hypoxemia Status: Acute Assessment and Plan: currently on supplemental oxygen by nasal cannula (3) HTN (hypertension): Code(s): I10 - Essential (primary) hypertension Status: Acute Assessment and Plan: continue to monitor continue amlodipine continue lisinopril (4) DVT prophylaxis: Code(s): Z29.9 - Encounter for prophylactic measures, unspecified Status: Acute Assessment and Plan: Lovenox 40 q.12 (5) Pneumonia due to COVID-19 virus: Code(s): U07.1 - COVID-19; J12.82 - Pneumonia due to coronavirus disease 2019 Status: Acute Assessment and Plan: on REM-severe and Decadron (6) Acute respiratory failure with hypoxia: Code(s): J96.01 - Acute respiratory failure with hypoxia Status: Acute Assessment and Plan: oxygen supplementation (7) Leg cramps: Code(s): R25.2 - Cramp and spasm Status: Acute Assessment and Plan: labs reviewed all unremarkable no swelling noted Tylenol p.r.n. Subjective Date/time seen: 01/24/21 16:38 Interval history: he had cramping in his lower legs earlier today felt better with Tylenol labs came back at [facility] unremarkable. His breathing has been improved and continues to improve. He wants to take a shower Review of Systems Review of Systems: All systems reviewed & are unremarkable except as noted in HPI and below Exam Narrative: Exam Narrative: Patient is comfortable, NAD HEENT: eyes are clear and none icteric LUNGS: normal respiratory effort No respiratory distress ABD: soft nondistended nontender no organomegaly Lower extremities: no edema cyanosis or clubbing SKIN: nonjaundiced Neuro: gross
[2021-01-24] MEDS: REMDESIVIR 100 MG/NS 250 ML 100 MG/250 ML BAG 250 MG IVPB (20:35)
[2021-01-25] VITALS (22 sets, daily range): BP systolic 128–138; BP diastolic 82–90; PULSE 56–96; RESP 16–24; TEMP 36.1–36.8; O2SAT 93–97
[2021-01-25] MEDS: ALBUTEROL SULFATE NEB 2.5 MG/0.5 ML INH INHALATION ×4 (02:21→20:03)
[2021-01-25 05:16] LABS: INR 1.2; Prothrombin Time 15.5 Seconds (11.1-14.7)
[2021-01-25 05:21] LABS: Alanine Aminotransferase 30 U/L (4-50); Estimated CRCL calculation 105 ml/min; Estimated Glomerular Filt Rate > 60
[2021-01-25] MEDS: ACETAMINOPHEN 325 MG TABLET 650 MG PO ×3 (08:30→22:08)
[2021-01-25] MEDS: lisinopriL 10 MG TABLET 30 MG PO (09:27)
[2021-01-25] MEDS: amLODIPine BESYLATE 5 MG TABLET 10 MG PO (09:27)
[2021-01-25] MEDS: ENOXAPARIN 40 MG/0.4 ML SYRINGE SUB-Q ×2 (09:28→20:52)
[2021-01-25] MEDS: FAMOTIDINE 20 MG/2 ML VIAL IV PUSH ×2 (09:28→20:52)
[2021-01-25] MEDS: DEXAMETHASONE SOD PHOS INJ 4 MG/ML VIAL 6 MG IV PUSH (09:28)
--- NOTE | 2021-01-25 16:37 | PM.IMPN ---
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 Upon presentation to emergency room his room oxygen saturation was in the low 80s requiring supplemental oxygen with 5 L and increased to 92%. Preliminary workup was significant for extensive multilevel lung infiltrates present on chest x-ray and CT angio with was which was negative for PE. patient denies any nausea vomiting diarrhea abdominal pain chest pain syncope near syncope PND orthopnea. Decision has been made to admit the patient for for the management and treatment. 01/22 patient is suspected to have a COVID-19 seen by home advisor recommended continue Remdesivir for 10 days, dexamethasone 10 and started the patient azithromycin and ceftriaxone for possible community-acquired pneumonia, stable is feeling much better compared to when he arrived, not as short of breath, will follow-up on COVID-19 test and further recommendation to follow, patient is encouraged prone position. 01/23: COVID-19 positive continue 4 g twice a day for 10 days dexamethasone for 10 days continue on azithromycin and ceftriaxone for possible community-acquired pneumonia also had convalescent plasma on . Titrate oxygen as needed to keep oxygen more than 90% pulmonary following appreciate his recommendations chest x-ray and CT are reviewed 01/24: Discussed with pulmonary continue to titrate oxygen requirement. Down to 7 L currently. Antibiotic started with low suspicions of ongoing bacterial pneumonia. Conversation plasma taken on discussed COVID-19 vaccination. Continue oxygen supplementation may shower precautions discussed with the nursing staff. Remdesivir and Decadron planned for 10 total days. 01/25: Continues to improve. Down to 6 L today. Reorder remdesivir starting tomorrow for 5 more days (2) Hypoxemia: Code(s): R09.02 - Hypoxemia Status: Acute Assessment and Plan: currently on supplemental oxygen by nasal cannula (3) HTN (hypertension): Code(s): I10 - Essential (primary) hypertension Status: Acute Assessment and Plan: continue to monitor continue amlodipine continue lisinopril (4) DVT prophylaxis: Code(s): Z29.9 - Encounter for prophylactic measures, unspecified Status: Acute Assessment and Plan: Lovenox 40 q.12 (5) Pneumonia due to COVID-19 virus: Code(s): U07.1 - COVID-19; J12.82 - Pneumonia due to coronavirus disease 2019 Status: Acute Assessment and Plan: on REM-severe and Decadron (6) Acute respiratory failure with hypoxia: Code(s): J96.01 - Acute respiratory failure with hypoxia Status: Acute Assessment and Plan: oxygen supplementation (7) Leg cramps: Code(s): R25.2 - Cramp and spasm Status: Acute Assessment and Plan: labs reviewed all unremarkable no swelling noted Tylenol p.r.n. Subjective Date/time seen: 01/25/21 16:37 Interval history: feeling better. Oxygen is down to 6 L. shortness of breath is improving. Ambulating okay. leg cramps has improved Review of Systems Review of Systems: All systems reviewed & are unremarkable except as noted in HPI and below Exam Narrative: Exam Narrative: Patient is comfortable, NAD HEENT: eyes are clear and none icteric LUNGS: normal respiratory effort No respiratory distress ABD: soft nondistended nontender no organomegaly Lower extremities: no edema cyanosis or clubbing SKIN
[2021-01-25 17:37] LABS: Alanine Aminotransferase 29 U/L (4-50); Estimated CRCL calculation 105 ml/min; Estimated Glomerular Filt Rate > 60
[2021-01-25 17:39] LABS: INR 1.1; Prothrombin Time 14.3 Seconds (11.1-14.7)
[2021-01-25] MEDS: REMDESIVIR 100 MG/NS 250 ML 100 MG/250 ML BAG 250 MG IVPB (20:53)
[2021-01-26] VITALS (24 sets, daily range): BP systolic 110–148; BP diastolic 64–95; PULSE 53–98; RESP 16–20; TEMP 35.9–37.1; O2SAT 91–98
[2021-01-26] MEDS: ALBUTEROL SULFATE NEB 2.5 MG/0.5 ML INH INHALATION ×4 (02:37→20:57)
[2021-01-26 05:21] LABS: INR 1.2; Prothrombin Time 14.7 Seconds (11.1-14.7)
[2021-01-26 05:23] LABS: Alanine Aminotransferase 26 U/L (4-50); Estimated CRCL calculation 105 ml/min; Estimated Glomerular Filt Rate > 60
[2021-01-26] MEDS: FAMOTIDINE 20 MG/2 ML VIAL IV PUSH ×2 (08:04→21:02)
[2021-01-26] MEDS: amLODIPine BESYLATE 5 MG TABLET 10 MG PO (08:05)
[2021-01-26] MEDS: ENOXAPARIN 40 MG/0.4 ML SYRINGE SUB-Q ×2 (08:05→21:02)
[2021-01-26] MEDS: lisinopriL 10 MG TABLET 30 MG PO (08:06)
[2021-01-26] MEDS: DEXAMETHASONE SOD PHOS INJ 4 MG/ML VIAL 6 MG IV PUSH (08:07)
[2021-01-26] MEDS: ACETAMINOPHEN 325 MG TABLET 650 MG PO ×3 (08:08→21:05)
--- NOTE | 2021-01-26 15:08 | PM.IMPN ---
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 Upon presentation to emergency room his room oxygen saturation was in the low 80s requiring supplemental oxygen with 5 L and increased to 92%. Preliminary workup was significant for extensive multilevel lung infiltrates present on chest x-ray and CT angio with was which was negative for PE. patient denies any nausea vomiting diarrhea abdominal pain chest pain syncope near syncope PND orthopnea. Decision has been made to admit the patient for for the management and treatment. 01/22 patient is suspected to have a COVID-19 seen by ethanol maintenance mechanic recommended continue Remdesivir for 10 days, dexamethasone 10 and started the patient azithromycin and ceftriaxone for possible community-acquired pneumonia, stable is feeling much better compared to when he arrived, not as short of breath, will follow-up on COVID-19 test and further recommendation to follow, patient is encouraged prone position. 01/23: COVID-19 positive continue 4 g twice a day for 10 days dexamethasone for 10 days continue on azithromycin and ceftriaxone for possible community-acquired pneumonia also had convalescent plasma on . Titrate oxygen as needed to keep oxygen more than 90% pulmonary following appreciate his recommendations chest x-ray and CT are reviewed 01/24: Discussed with pulmonary continue to titrate oxygen requirement. Down to 7 L currently. Antibiotic started with low suspicions of ongoing bacterial pneumonia. Conversation plasma taken on discussed COVID-19 vaccination. Continue oxygen supplementation may shower precautions discussed with the nursing staff. Remdesivir and Decadron planned for 10 total days. 01/25: Continues to improve. Down to 6 L today. Reorder remdesivir starting tomorrow for 5 more days 01/26: Continues to make improvement down to 4 L nasal cannula. Continue rim to severe and Decadron as ordered. Monitor his LFT. Leukocytosis likely due to steroid. He is off antibiotics. Procalcitonin level was normal (2) Hypoxemia: Code(s): R09.02 - Hypoxemia Status: Acute Assessment and Plan: currently on supplemental oxygen by nasal cannula (3) HTN (hypertension): Code(s): I10 - Essential (primary) hypertension Status: Acute Assessment and Plan: continue to monitor continue amlodipine continue lisinopril (4) DVT prophylaxis: Code(s): Z29.9 - Encounter for prophylactic measures, unspecified Status: Acute Assessment and Plan: Lovenox 40 q.12 (5) Pneumonia due to COVID-19 virus: Code(s): U07.1 - COVID-19; J12.82 - Pneumonia due to coronavirus disease 2019 Status: Acute Assessment and Plan: on REM-severe and Decadron (6) Acute respiratory failure with hypoxia: Code(s): J96.01 - Acute respiratory failure with hypoxia Status: Acute Assessment and Plan: oxygen supplementation (7) Leg cramps: Code(s): R25.2 - Cramp and spasm Status: Acute Assessment and Plan: labs reviewed all unremarkable no swelling noted Tylenol p.r.n. Subjective Date/time seen: 01/26/21 15:08 Interval history: No overnight events. His oxygen requirement is down to 4 L today shortness of breath is improving. Is ambulating in the room without increased shortness of breath. Leg cramps is improved. No other complaints today Review of Systems Review of Systems: All systems reviewed & ar
[2021-01-26] MEDS: REMDESIVIR 100 MG/NS 250 ML 100 MG/250 ML BAG 250 MG IVPB (21:03)
[2021-01-27] VITALS (18 sets, daily range): BP systolic 121–134; BP diastolic 76–87; PULSE 57–89; RESP 12–22; TEMP 36.4–36.6; O2SAT 90–98
[2021-01-27] MEDS: ALBUTEROL SULFATE NEB 2.5 MG/0.5 ML INH INHALATION ×4 (02:43→21:01)
[2021-01-27 05:33] LABS: INR 1.1; Prothrombin Time 14.2 Seconds (11.1-14.7)
[2021-01-27 05:53] LABS: Alanine Aminotransferase 22 U/L (4-50); Estimated CRCL calculation 105 ml/min; Estimated Glomerular Filt Rate > 60
[2021-01-27] MEDS: amLODIPine BESYLATE 5 MG TABLET 10 MG PO (08:02)
[2021-01-27] MEDS: DEXAMETHASONE SOD PHOS INJ 4 MG/ML VIAL 6 MG IV PUSH (08:03)
[2021-01-27] MEDS: ENOXAPARIN 40 MG/0.4 ML SYRINGE SUB-Q ×2 (08:03→19:56)
[2021-01-27] MEDS: ACETAMINOPHEN 325 MG TABLET 650 MG PO ×2 (08:03→19:56)
[2021-01-27] MEDS: FAMOTIDINE 20 MG/2 ML VIAL IV PUSH ×2 (08:04→19:56)
[2021-01-27] MEDS: lisinopriL 10 MG TABLET 30 MG PO (08:04)
--- NOTE | 2021-01-27 12:32 | PM.IMPN ---
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 Upon presentation to emergency room his room oxygen saturation was in the low 80s requiring supplemental oxygen with 5 L and increased to 92%. Preliminary workup was significant for extensive multilevel lung infiltrates present on chest x-ray and CT angio with was which was negative for PE. patient denies any nausea vomiting diarrhea abdominal pain chest pain syncope near syncope PND orthopnea. Decision has been made to admit the patient for for the management and treatment. 01/22 patient is suspected to have a COVID-19 seen by freight car loader recommended continue Remdesivir for 10 days, dexamethasone 10 and started the patient azithromycin and ceftriaxone for possible community-acquired pneumonia, stable is feeling much better compared to when he arrived, not as short of breath, will follow-up on COVID-19 test and further recommendation to follow, patient is encouraged prone position. 01/23: COVID-19 positive continue 4 g twice a day for 10 days dexamethasone for 10 days continue on azithromycin and ceftriaxone for possible community-acquired pneumonia also had convalescent plasma on . Titrate oxygen as needed to keep oxygen more than 90% pulmonary following appreciate his recommendations chest x-ray and CT are reviewed 01/24: Discussed with pulmonary continue to titrate oxygen requirement. Down to 7 L currently. Antibiotic started with low suspicions of ongoing bacterial pneumonia. Conversation plasma taken on discussed COVID-19 vaccination. Continue oxygen supplementation may shower precautions discussed with the nursing staff. Remdesivir and Decadron planned for 10 total days. 01/25: Continues to improve. Down to 6 L today. Reorder remdesivir starting tomorrow for 5 more days 01/26: Continues to make improvement down to 4 L nasal cannula. Continue rim to severe and Decadron as ordered. Monitor his LFT. Leukocytosis likely due to steroid. He is off antibiotics. Procalcitonin level was normal 01/27: Continues to make improvement down to 1 L today will take him off of his oxygen and watch him throughout the day today with rest and activity. LFTs and labs within normal limit. Continue remdesivir and Decadron as ordered until . Discussed the plan (2) Hypoxemia: Code(s): R09.02 - Hypoxemia Status: Acute Assessment and Plan: currently on supplemental oxygen by nasal cannula (3) HTN (hypertension): Code(s): I10 - Essential (primary) hypertension Status: Acute Assessment and Plan: continue to monitor continue amlodipine continue lisinopril (4) DVT prophylaxis: Code(s): Z29.9 - Encounter for prophylactic measures, unspecified Status: Acute Assessment and Plan: Lovenox 40 q.12 (5) Pneumonia due to COVID-19 virus: Code(s): U07.1 - COVID-19; J12.82 - Pneumonia due to coronavirus disease 2019 Status: Acute Assessment and Plan: on REM-severe and Decadron (6) Acute respiratory failure with hypoxia: Code(s): J96.01 - Acute respiratory failure with hypoxia Status: Acute Assessment and Plan: oxygen supplementation (7) Leg cramps: Code(s): R25.2 - Cramp and spasm Status: Acute Assessment and Plan: labs reviewed all unremarkable no swelling noted Tylenol p.r.n. Subjective Date/time seen: 01/27/21 12:32 Interval history: No overnight events.
--- NOTE | 2021-01-27 17:25 | PC.NURSE ---
This patient, Tavo Ibrahim, was received from [facility] [id number] on 01/27/21 at 1725. Patient/family oriented to unit policies and routines. Report received from Shilpa VICENTE.
[2021-01-27] MEDS: REMDESIVIR 100 MG/NS 250 ML 100 MG/250 ML BAG 250 MG IVPB (21:54)
[2021-01-28] VITALS (8 sets, daily range): BP systolic 128–137; BP diastolic 77–92; PULSE 63–88; RESP 14–22; TEMP 36.2–36.7; O2SAT 92–94
[2021-01-28] MEDS: ALBUTEROL SULFATE NEB 2.5 MG/0.5 ML INH INHALATION ×2 (02:13→08:12)
[2021-01-28 06:20] LABS: INR 1.1; Prothrombin Time 13.9 Seconds (11.1-14.7)
[2021-01-28 06:21] LABS: Alanine Aminotransferase 22 U/L (4-50); Estimated CRCL calculation 93 ml/min; Estimated Glomerular Filt Rate > 60
[2021-01-28] MEDS: ACETAMINOPHEN 325 MG TABLET 650 MG PO (09:16)
[2021-01-28] MEDS: amLODIPine BESYLATE 5 MG TABLET 10 MG PO (09:17)
[2021-01-28] MEDS: DEXAMETHASONE SOD PHOS INJ 4 MG/ML VIAL 6 MG IV PUSH (09:17)
[2021-01-28] MEDS: lisinopriL 10 MG TABLET 30 MG PO (09:18)
--- NOTE | 2021-01-28 09:56 | PM.DS ---
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 Upon presentation to emergency room his room oxygen saturation was in the low 80s requiring supplemental oxygen with 5 L and increased to 92%. Preliminary workup was significant for extensive multilevel lung infiltrates present on chest x-ray and CT angio with was which was negative for PE. patient denies any nausea vomiting diarrhea abdominal pain chest pain syncope near syncope PND orthopnea. Decision has been made to admit the patient for for the management and treatment. 01/22 patient is suspected to have a COVID-19 seen by die presser recommended continue Remdesivir for 10 days, dexamethasone 10 and started the patient azithromycin and ceftriaxone for possible community-acquired pneumonia, stable is feeling much better compared to when he arrived, not as short of breath, will follow-up on COVID-19 test and further recommendation to follow, patient is encouraged prone position. 01/23: COVID-19 positive continue 4 g twice a day for 10 days dexamethasone for 10 days continue on azithromycin and ceftriaxone for possible community-acquired pneumonia also had convalescent plasma on . Titrate oxygen as needed to keep oxygen more than 90% pulmonary following appreciate his recommendations chest x-ray and CT are reviewed 01/24: Discussed with pulmonary continue to titrate oxygen requirement. Down to 7 L currently. Antibiotic started with low suspicions of ongoing bacterial pneumonia. Conversation plasma taken on discussed COVID-19 vaccination. Continue oxygen supplementation may shower precautions discussed with the nursing staff. Remdesivir and Decadron planned for 10 total days. 01/25: Continues to improve. Down to 6 L today. Reorder remdesivir starting tomorrow for 5 more days 01/26: Continues to make improvement down to 4 L nasal cannula. Continue rim to severe and Decadron as ordered. Monitor his LFT. Leukocytosis likely due to steroid. He is off antibiotics. Procalcitonin level was normal 01/27: Continues to make improvement down to 1 L today will take him off of his oxygen and watch him throughout the day today with rest and activity. LFTs and labs within normal limit. Continue remdesivir and Decadron as ordered until . Discussed the plan (2) Hypoxemia: Code(s): R09.02 - Hypoxemia Status: Acute Assessment and Plan: currently on supplemental oxygen by nasal cannula (3) HTN (hypertension): Code(s): I10 - Essential (primary) hypertension Status: Acute Assessment and Plan: continue to monitor continue amlodipine continue lisinopril (4) DVT prophylaxis: Code(s): Z29.9 - Encounter for prophylactic measures, unspecified Status: Acute Assessment and Plan: Lovenox 40 q.12 (5) Pneumonia due to COVID-19 virus: Code(s): U07.1 - COVID-19; J12.82 - Pneumonia due to coronavirus disease 2018 Status: Acute Assessment and Plan: on REM-severe and Decadron (6) Acute respiratory failure with hypoxia: Code(s): J96.01 - Acute respiratory failure with hypoxia Status: Acute Assessment and Plan: oxygen supplementation (7) Leg cramps: Code(s): R25.2 - Cramp and spasm Status: Acute Assessment and Plan: labs reviewed all unremarkable no swelling noted Tylenol p.r.n
== END 2021-01-28 10:40 | disposition home or self-care (01) | DRG 177 ==
LOC: ANHED 20:11 → ANHIMU 01-22 14:59 → ANH3MEDSUR 01-28 09:56 → ANHIMU 01-31 12:40
PROVIDERS: Emergency Medicine Emergency Medical Services; Internal Medicine; Admitting Provider Internal Medicine; Emergency Provider Emergency Medicine; PCP Nurse Practitioner Family; Visit Provider Internal Medicine
DX: U07.1 COVID-19 (principal); J12.82 Pneumonia due to coronavirus disease 2019; J96.01 Acute respiratory failure with hypoxia; I10 Essential (primary) hypertension
CPT/HCPCS: 36415; 36430; 36600; 71045; 71275; 80053; 82550; 82565; 82805; 83605; 83735; 83880; 84100; 84145; 84460; 84484; 85025; 85027; 85380; 85610; 85730; 86900; 86901; 87040; 87804; 93005; 94640; 96361; 96374; 96375; 97161; 97165; 99285; A9270; C9803; J0131; J0456; J0696; J1100; J1650; J7030; J7050; J7120; P9059; Q9967; U0003; U0005

== ENCOUNTER 2021-02-22 15:47 | Outpatient (CLI) | payer BC, SELFPAY ==
--- NOTE | ~2021-02-22 | XR_ITS ---
EXAMINATION: XR chest 2V DATE: 02/22/2021 16:04 INDICATION: History of hypertension and COVID 19 pneumonia TECHNIQUE: PA and lateral views of the chest are obtained. COMPARISON: 01/21/2021 FINDINGS: Patchy bilateral airspace opacities are present which demonstrate interval decrease since t he comparison examination. No new airspace opacities are identified. There is no pleural effusion or pneumothorax. The cardiomediastinal silhouette is normal. There is mild thoracic spondylosis. IMPRESSION: 1. Persistent but improving airspace opacities, consistent with resolving pneumonia. Reviewed, dictated and finalized at location A. IMPRESSION: 1. Persistent but improving airspace opacities, consistent with resolving pneum onia.
== END 2021-02-22 15:48 | disposition home or self-care (01) ==
LOC: ANHIMG 15:50
PROVIDERS: PCP Nurse Practitioner Family; Visit Provider Internal Medicine Pulmonary Disease
DX: U07.1 COVID-19 (principal); J12.82 Pneumonia due to coronavirus disease 2019; I10 Essential (primary) hypertension
CPT/HCPCS: 71046

== ENCOUNTER → 2021-08-11 08:46 | Outpatient (CLI) | payer BC, SELFPAY ==
--- NOTE | ~2021-08-11 | US_ITS ---
EXAMINATION: US right upper quadrant EXAM DATE: 08/11/2021 09:29 INDICATION: Hepatitis C . TECHNIQUE: Multiple grayscale and Doppler images of the abdomen right upper quadrant were obtained (madelyn y a technologist who performed the scan) and subsequently reviewed. There is no prior study for tashia hoyt. FINDINGS: The pancreatic head and body are normal in appearance. The pancreatic tail is not visualized. The l iver has normal echogenicity and contour. Anechoic left liver lobe lesion consistent with cyst measu ring up to 1.8 cm, and another in the right liver lobe measuring up to 1.6 cm. No suspicious liver le sions. There is no evidence of intrahepatic biliary duct dilation. Portal venous flow was seen in t he hepatopedal, normal direction and has normal Doppler waveform. No right-sided hydronephrosis. Common bile duct measures 4 mm, which is normal. The gallbladder wall is normal in thickness, with ex pected amount of distention. No sonographic evidence of pericholecystic fluid. There is small polyp measuring 4 mm not requiring any further follow-up. No cholelithiasis. Technologist performing exam reports patient did not demonstrate sonographic Carrasquillo's sign. Please note that this sign is less r eliable in patients who have received pain medication. IMPRESSION: 1. No clinically significant findings. Reviewed, dictated and finalized at location G. CREWMAN
== END ==
PROVIDERS: Visit Provider Internal Medicine Gastroenterology
DX: B19.20 Unspecified viral hepatitis C without hepatic coma (principal)
CPT/HCPCS: 76705

== ENCOUNTER → 2022-09-17 07:43 | Outpatient (CLI) | payer OTHER, SELFPAY ==
--- NOTE | ~2022-09-17 | US_ITS ---
Limited Abdominal Sonogram: Real-time sonographic imaging of the right upper quadrant was performed. Clinical History: Hepatitis C Findings: The liver appears normal with no evidence of solid mass lesion or bile duct dilatation. Sm all clustered or septated cysts are present in the right hepatic lobe, measuring up to 1.6 cm in maxi mum diameter. Main portal vein demonstrates normal direction of flow. The gallbladder is well distend ed, without evidence of stone. Probable tiny gallbladder wall polyps measuring up to 3 mm. The common bile duct measures 7 mm. The visualized pancreas, aorta, and IVC are unremarkable. Right kidney kaela sures 10.9 cm in length, without evidence of hydronephrosis. Impression: Scattered hepatic cysts, including septated/clustered cysts, as detailed above. Small gallbladder wall polyps. Reviewed, dictated and finalized at [facility]. [employer] Impression: Scattered hepatic cysts, including septated/clustered cysts, as detailed above. Small gallbladder wall polyps.
== END ==
PROVIDERS: PCP Nurse Practitioner Family; Visit Provider Internal Medicine Gastroenterology
DX: B19.20 Unspecified viral hepatitis C without hepatic coma (principal); K76.89 Other specified diseases of liver; K82.4 Cholesterolosis of gallbladder
CPT/HCPCS: 76705

== ENCOUNTER 2022-10-11 01:39 | Day surgery (SDC) | payer OTHER, SELFPAY ==
[2022-10-02 10:29] VITALS: BMI 25.8
--- NOTE | 2022-10-11 11:01 | P.PNAN_ITS ---
Anes - Initial Pre Proc Eval Procedure: Operation Date: 10/11/22 13:00 Proposed Procedures p Screening Colonoscopy - Familia Diaz MD Date/Time: 10/11/22 11:01 Surgeon: Familia Diaz MD Pre Op Diagnosis: neoplasm screening Patient Data Age: 62 Gender: M Height: 1.83 m Weight: 86.4 kg Allergies Allergy/AdvReac Type Severity Reaction Status Date / Time No Known Allergies Allergy Mild Verified 10/11/22 11:03 Patient hx anesthesia problems: none Family hx anesthesia problems: none Results Review: All pre-operative results and documents have been reviewed as part of the pre- operative evaluation. [facility] Past Medical History Medical History (Updated 10/11/22 @ 11:03 by Familia Diaz MD) HTN (hypertension) Family History Family History Mother Hypertension Father COPD (chronic obstructive pulmonary disease) Hypertension Social History Social History Smoking status: Never smoker Alcohol intake: current Drinks per week: 21 Alcohol use details: 3 beers nightly Substance use: never Substance use type: does not use Living arrangements: with family Spiritual care concerns: No Anes - Eval Final PreProcedure Day of Procedure 10/11/22 11:01 Patient weight: overweight Heart: regular rate and rhythm Lungs: clear to auscultation Airway: Mallampati scale class II Neurological: alert and oriented Last oral intake: >/= 8 hours ASA classification: II Emergent: no Anesthetic plan: proceed Anesthesia type and monitoring: general GIVS and standard monitoring Results Review: All pre-operative results and documents have been reviewed as part of the pre- operative evaluation. Informed Consent: The patient's anesthetic plan and its attendant risks and benefits were discussed with the patient/family/POA. Questions were solicited and answers p rovided to the satisfaction of the patient/family/POA.
--- NOTE | 2022-10-11 11:02 | P.HP_ITS ---
History of Present Illness History of Present Illness Consent: Risks, benefits, and alternatives have been discussed and questions answered. Patient agrees to proceed with procedure. Chief complaint: neoplasm screening Narrative: Tavo Ibrahim is a 62 year old male Presents for screening colonoscopy. Patient's current weight appetite and bowel movements are normal. Patient denies abdominal pain. He has had no bleeding. Family history noncontributory. Previous colonoscopy 7 years ago was unremarkable. Patient presents today for screening exam. Review of Systems Review of Systems: Review of systems noncontributory. [facility] Past Medical History Medical History (Updated 10/11/22 @ 11:03 by Familia Diaz MD) HTN (hypertension) Family History Family History Mother Hypertension Father COPD (chronic obstructive pulmonary disease) Hypertension Social History Social History Smoking status: Never smoker Alcohol intake: current Drinks per week: 21 Alcohol use details: 3 beers nightly Substance use: never Substance use type: does not use Living arrangements: with family Spiritual care concerns: No Meds Home Medications and Allergies Allergies Allergy/AdvReac Type Severity Reaction Status Date / Time No Known Allergies Allergy Mild Verified 10/11/22 11:03 Exam Narrative: Physical exam reveals patient to be alert. Vital signs stable. HEENT exam is unremarkable. Patient is anicteric. Lungs are clear to auscultation and percussion. Heart is without murmur or extra sounds. Abdomen bowel sounds are present soft nontender with no organomegaly. Digital external rectal exam is normal. Assessment and Plan Assessment and plan (1) Encounter for screening colonoscopy: Code(s): Z12.11 - Encounter for screening for malignant neoplasm of colon Status: Acute Assessment and Plan: Patient presents for screening colonoscopy. He appears to be at average risk for colon polyps. Further recommendations may be given after endoscopy.
[2022-10-11 11:04] VITALS: BP 130/85; PULSE 64; RESP 16; TEMP 36.3; O2SAT 100
[2022-10-11] MEDS: LACTATED RINGERS 1,000 ML 150 ML IV CONT (11:14)
[2022-10-11] MEDS: SIMETHICONE ORAL SUSPENSION 20 MG/0.3 ML 30 ML BOTTLE 0.6 ML IRRIGATION (11:45)
[2022-10-11 11:59] VITALS: BP 103/65; PULSE 76; RESP 19; TEMP 36.3; O2SAT 100
[2022-10-11 12:09] VITALS: BP 118/84; PULSE 71; RESP 27; TEMP 36.3; O2SAT 100
[2022-10-11 12:19] VITALS: BP 122/86; PULSE 62; RESP 21; TEMP 36.3; O2SAT 100
== END 2022-10-11 12:27 | disposition home or self-care (01) ==
PROVIDERS: PCP Nurse Practitioner Family; Visit Provider Internal Medicine Gastroenterology
PROC: 0DJD8ZZ Inspection of Lower Intestinal Tract, Via Natural or Artificial Opening Endoscopic (ICD-10-PCS; CPT 45378; principal; 2022-10-11 13:00)
DX: Z12.11 Encounter for screening for malignant neoplasm of colon (principal); K63.5 Polyp of colon
CPT/HCPCS: 45380; 88305; J2704; J7120